=== PATIENT | female | born 1935 | race Caucasian/White ===

== ENCOUNTER → 2016-12-10 | Outpatient (CLI) | payer MEDICARE ==
--- NOTE | 2016-12-10 12:38 | Diagnostic Imaging Report ---
EXAMINATION: Right breast diagnostic mammogram with a Computer Aided Detection (CAD) system. COMPARISON: 01/15/2016. INDICATION: Palpable lesion in the upper aspect of the right breast. FINDINGS: The right breast is composed of scattered fibroglandular densities. The palpable area is marked and appears to correspond with coarse calcifications in the upper aspect of the right breast. These appear minimally prominent compared to prior exams with overall suggestion of weight loss and loss of fat content in the right breast perhaps making these calcifications more palpable. There is no development of suspicious mass compared to the previous exam. IMPRESSION: The palpable area in the upper right breast appears to correlate with benign-appearing calcifications which are minimally more prominent compared to prior exams. An ultrasound evaluation is pending. ACR BI-RADS Category 0: Incomplete. (Needs additional imaging evaluation). Result letter will be mailed to the patient. Note: At least 10% of breast cancer is not imaged by mammography. Dictated by: Dictated on workstation # [id number]
--- NOTE | 2016-12-10 12:43 | Diagnostic Imaging Report ---
Right breast ultrasound. INDICATION: Calcification seen in the right breast appears to correlate with the palpable area. FINDINGS: There is a significant shadowing seen at 12:00 zone 3 cm from the nipple which would correlate with the area of calcification. Expected significant shadowing is seen from the coarse calcifications is noted on ultrasound which obscures that particular region. The surrounding area however does not demonstrate any suspicious abnormality. IMPRESSION: No suspicious mass. The palpable area appears to correlate with the calcifications which are slightly increased from prior exams based on mammography and are likely dystrophic type, benign. A 6 month followup mammogram to ensure stability is recommended. BI-RADS 3. ACR BI-RADS Category 3: Probably benign findings. Dictated by: Dictated on workstation # [id number]
== END ==
LOC: RAD 07:45
PROVIDERS: ATTEND Family Medicine
DX: N63 Unspecified lump in breast (principal)

== ENCOUNTER → 2017-06-29 | Outpatient (CLI) | payer MEDICARE ==
--- NOTE | 2017-06-30 10:37 | Diagnostic Imaging Report ---
INDICATION: Six-month followup of right breast calcifications. The patient also reports pain in the medial aspect of the left breast. COMPARISON: Correlation is made with the prior right mammogram from 12/10/2016 and bilateral mammograms on 01/15/2016 and 01/03/2015. BILATERAL DIAGNOSTIC MAMMOGRAM: TECHNIQUE: Bilateral CC and MLO 3D mammography was performed. The current study was also evaluated with a Computer Aided Detection (CAD) system. FINDINGS: Coarse calcifications in the upper central right breast appear stable and benign. There are vascular calcifications bilaterally. The left breast appears stable. No mass is seen. No malignant appearing microcalcifications are identified. The axillae are unremarkable. IMPRESSION: No mammographic features suspicious for malignancy are identified. The right breast calcifications are stable. Further evaluation of the area of pain in the medial left breast is recommended with ultrasound. LEFT BREAST ULTRASOUND: Sonographic interrogation of the area of pain in the medial left breast was performed. No solid or cystic mass is identified. IMPRESSION: No sonographic abnormality is identified. The patient may return to routine annual screening mammography. ACR BI-RADS Category 2: Benign findings. Result letter will be mailed to the patient. Note: At least 10% of breast cancer is not imaged by mammography. Dictated by: Dictated on workstation # [id number]
== END ==
LOC: RAD 12:57
PROVIDERS: ATTEND Family Medicine
DX: N63.10 Unspecified lump in the right breast, unspecified quadrant (principal)
CPT/HCPCS: 76642; 77066